=== PATIENT | male | born 1960 | race Hispanic/Latino ===

== ENCOUNTER 2020-04-29 16:17 | Emergency (ER) | payer OTHER ==
[2020-04-29 16:43] LABS: ABG OXYGEN SATURATION 98.3 % (95.0-99.0)
== END 2020-04-29 20:07 | disposition expired ==
LOC: EDH 16:17
DX: I46.9 Cardiac arrest, cause unspecified (principal); Z20.828 Contact with and (suspected) exposure to other viral communicable diseases; E11.9 Type 2 diabetes mellitus without complications; I10 Essential (primary) hypertension; I25.10 Atherosclerotic heart disease of native coronary artery without angina pectoris
CPT/HCPCS: 36600; 82435; 82947; 83605; 84132; 84295; 85018; 87426; 92950; 99285; U0003